=== PATIENT | female | born 1990 | race Asian ===

== ENCOUNTER 2016-07-13 11:53 | Emergency (ER) | payer OTHER ==
--- NOTE | 2016-07-13 11:59 | EDPHY ---
H & P Time Seen by Provider: 07/13/16 11:59 HPI/ROS: CHIEF COMPLAINT: Injury to right hand HISTORY OF PRESENT ILLNESS: Works in housekeeping in a local hotel, was pushing a cart down the hallway and round her right hand the dorsum into a fire extinguisher bruising it and causing a wound on the skin. No other injuries. REVIEW OF SYSTEMS: No weakness or numbness distally. PAST MEDICAL HISTORY: Negative, tetanus not up-to-date. Social history: Work related injury General Appearance: Alert and conversant, cooperative. Normal right elbow forearm and wrist and snuffbox. Swelling and tenderness to the dorsum of the right hand with a 2 cm abrasion not full thickness. Preserved distal capillary refill motor and sensation. Abrasion on the PIP of the right ring finger which occurred earlier today and is minor. Normal FDP FDS and extensor tendon function. Emergency Department course/MDM: Topical anesthetic, tetanus updated, x-ray of the right hand. Smoking Status: Never smoked Constitutional: Initial Vital Signs Temperature (C) 37.2 C 07/13/16 11:55 Heart Rate 77 07/13/16 11:55 Respiratory Rate 16 07/13/16 11:55 Blood Pressure 103/68 07/13/16 11:55 O2 Sat (%) 99 07/13/16 11:55 O2 Delivery Mode Room Air Allergies/Adverse Reactions: No Known Allergies Allergy (Unverified 07/13/16 11:55) Home Medications: Medication Instructions Recorded NK [No Known Home Meds] 07/13/16 MDM/Departure - MDM Diagnostics: Right hand x-ray viewed independently by myself shows soft tissue swelling but no fracture or dislocation or foreign body Medications Given: Discontinued Medications Diphtheria/Tetanus/Acell Pertussis (Boostrix) 0.5 ml IM .ONCE ONE Stop: 07/13/16 12:06 Last Admin: 07/13/16 12:28 Dose: 0.5 ml - Depart Disposition: Home, Routine, Self-Care Clinical Impression: Abrasion of right hand Qualifiers: Encounter type: initial encounter Qualifier Code: (S60.511A) Abrasion of right hand, initial encounter Contusion of right hand Qualifiers: Encounter type: initial encounter Qualifier Code: (S60.221A) Contusion of right hand, initial encounter Condition: Good Instructions: Contusion in Adults (ED), Abrasion (ED) Stand Alone Forms: Work Excuse Referrals: Anthony Tam MD [Medical Doctor] - As per Instructions Work Comp Ref/Restrictions [Outside] - 1 day without fail (work comp clinic followup 24 hours; no work until OK by work comp clinic)
[2016-07-13] MEDS ORDERED: TDAP ADULT 0.5 ML INJ (BOOSTRIX) IM ONE (12:05)
[2016-07-13] MEDS ORDERED: LETS SOLN TOPICAL 1 EA SYR TP ONE (12:06)
[2016-07-13 13:04] VITALS: BP 105/78; PULSE 70; RESP 18; TEMP 98.6; O2SAT 96
--- NOTE | 2016-07-13 13:45 | DX ---
Right Hand, Three Views Indication: Smashed hand between housekeeping cart and fire extinguisher. Findings: No fracture or dislocation. There is swelling of the dorsum of the hand. No radiopaque soft tissue foreign body. Impression: No fracture.
== END 2016-07-13 13:02 | disposition home or self-care (01) ==
DX: S60.221A Contusion of right hand, initial encounter (principal); S60.511A Abrasion of right hand, initial encounter; Z23 Encounter for immunization; X58.XXXA Exposure to other specified factors, initial encounter; Y92.59 Other trade areas as the place of occurrence of the external cause; Y99.0 Civilian activity done for income or pay; Y93.89 Activity, other specified